=== PATIENT | female | born 1985 | race Caucasian/White ===

== ENCOUNTER 2018-04-23 16:58 | Inpatient (IN) | payer OTHER ==
[2018-04-23] MEDS ORDERED: OXYTOCIN 30 UNITS/LR 500 ML IV ×2 (18:00)
[2018-04-23] MEDS ORDERED: LIDOCAINE 1% (MPF) 30 ML INJ INJ (18:00)
[2018-04-23] MEDS ORDERED: METHYLERGONOVINE 0.2 MG INJ IM (18:00)
[2018-04-23] MEDS ORDERED: IBUPROFEN 600 MG TAB PO (18:00)
[2018-04-23] MEDS ORDERED: BUTORPHANOL 2 MG INJ IV (18:00)
[2018-04-23] MEDS ORDERED: MISOPROSTOL 200 MCG TAB PR (18:00)
[2018-04-23] MEDS ORDERED: CARBOPROST 250 MCG INJ IM (18:00)
[2018-04-23] MEDS: LACTATED RINGER'S 1,000 ML IV ×2 (18:46→21:18)
[2018-04-23 19:21] LABS: ADD MAN DIFF? NO
[2018-04-23 19:25] LABS: WHITE BLOOD COUNT 12.2 10^3/ul (4.8-10.8)
[2018-04-23 19:25] LABS: BASOPHIL # 0.1 10^3/ul (0.0-0.1); BASOPHILS % 0.4 % (0.0-2.0); EOSINOPHILS # 0.2 10^3/ul (0.0-0.5); EOSINOPHILS % 1.4 % (0.0-7.0); HEMATOCRIT 33.7 % (37.0-47.0); HEMOGLOBIN 11.2 g/dl (12.0-16.0); LYMPHOCYTES # 1.7 10^3/ul (0.8-2.9); LYMPHOCYTES % 13.7 % (15.0-51.0); MEAN CORPUSCULAR HEMOGLOBIN 29.9 pg (29.0-33.0); MEAN CORPUSCULAR HGB CONC 33.2 g/dl (32.0-37.0); MEAN CORPUSCULAR VOLUME 89.9 fl (82.0-101.0); MEAN PLATELET VOLUME 10.5 fl (7.4-10.4); MONOCYTE # 1.1 10^3/ul (0.3-0.9); MONOCYTES % 8.8 % (0.0-11.0); NEUTROPHIL # 9.1 10^3/ul (1.6-7.5); NEUTROPHILS % 74.1 % (39.0-77.0); PLATELET COUNT 214 10^3/UL (140-415); RED BLOOD COUNT 3.75 10^6/ul (4.20-5.40)
[2018-04-23 19:44] LABS: INR 0.93; PARTIAL THROMBOPLASTIN TIME 25.2 Sec (23.0-35.0); PROTIME 12.6 Sec (11.9-14.9)
[2018-04-23] MEDS: OXYTOCIN 30 UNITS/LR 500 ML IV (22:10)
[2018-04-23] MEDS: RANITIDINE 150 MG TAB PO (23:40)
[2018-04-24] MEDS ORDERED: FENTAnyl 2MCG/ML-ROPIV 0.2% 100 ML (00:24)
[2018-04-24] MEDS: LACTATED RINGER'S 1,000 ML IV ×4 (00:42→09:22)
[2018-04-24] MEDS ORDERED: NALOXONE (0.4 MG/ML) INJ IV (01:00)
[2018-04-24] MEDS: FENTAnyl 2MCG/ML-ROPIV 0.2% 100 ML BAG EPI ×2 (08:26→15:52)
[2018-04-24] MEDS: AMPICILLIN 2 GM/NS (PMX) 100 ML IV (10:38)
[2018-04-24] MEDS: RANITIDINE 150 MG TAB PO (11:25)
[2018-04-24] MEDS: VALACYCLOVIR 500 MG TAB PO (11:25)
[2018-04-24] MEDS: AMPICILLIN 1 GM/NS (PMX) 50 ML IV (14:26)
[2018-04-24 15:23] LABS: RAPID PLASMA REAGIN NONREACTIVE (NR)
[2018-04-24] MEDS: OXYTOCIN 30 UNITS/LR 500 ML IV ×2 (17:12→20:48)
[2018-04-24] MEDS: LACTATED RINGER'S 1,000 ML IV* (17:22)
[2018-04-24] MEDS ORDERED: CARBOPROST 250 MCG INJ IM (17:30)
[2018-04-24] MEDS ORDERED: METHYLERGONOVINE 0.2 MG INJ IM (17:30)
[2018-04-24] MEDS ORDERED: MISOPROSTOL 200 MCG TAB PR (17:30)
[2018-04-24] MEDS ORDERED: OXYTOCIN 30 UNITS/LR 500 ML IV (17:30)
[2018-04-24] MEDS: IBUPROFEN 600 MG TAB PO ×2 (18:50→23:29)
[2018-04-24] MEDS: WITCH HAZEL/GLYCERIN PAD PR (20:45)
[2018-04-24] MEDS: BENZOCAINE 20% 56 ML SPRAY TOP (20:45)
[2018-04-24] MEDS: LANOLIN HPA 1 PKT TOP (20:46)
[2018-04-24] MEDS ORDERED: PATIENT'S OWN MEDICATION PO (21:00)
[2018-04-24] MEDS ORDERED: SERTRALINE 100 MG TAB PO (21:00)
[2018-04-24] MEDS: SERTRALINE 100 MG TAB PO (22:42)
[2018-04-24] MEDS: Mesalamine DR 1.2 GM TAB PO ×2 (23:32→23:49)
[2018-04-25] MEDS: LACTATED RINGER'S 1,000 ML IV* (01:22)
[2018-04-25] MEDS: HYDROCODONE/APAP (5/325) TAB PO ×2 (02:18→17:13)
[2018-04-25] MEDS: IBUPROFEN 600 MG TAB PO ×3 (05:45→18:01)
[2018-04-25 08:26] LABS: ADD MAN DIFF? NO
[2018-04-25 08:29] LABS: WHITE BLOOD COUNT 13.3 10^3/ul (4.8-10.8)
[2018-04-25 08:29] LABS: BASOPHILS % 0.3 % (0.0-2.0); EOSINOPHILS # 0.3 10^3/ul (0.0-0.5); EOSINOPHILS % 2.3 % (0.0-7.0); HEMATOCRIT 34.1 % (37.0-47.0); HEMOGLOBIN 10.9 g/dl (12.0-16.0); LYMPHOCYTES # 2.4 10^3/ul (0.8-2.9); LYMPHOCYTES % 18.4 % (15.0-51.0); MEAN CORPUSCULAR HEMOGLOBIN 29.2 pg (29.0-33.0); MEAN CORPUSCULAR VOLUME 91.4 fl (82.0-101.0); MEAN PLATELET VOLUME 10.6 fl (7.4-10.4); MONOCYTE # 1.2 10^3/ul (0.3-0.9); NEUTROPHIL # 9.2 10^3/ul (1.6-7.5); NEUTROPHILS % 69.1 % (39.0-77.0); PLATELET COUNT 213 10^3/UL (140-415); RED BLOOD COUNT 3.73 10^6/ul (4.20-5.40)
[2018-04-25] MEDS: VALACYCLOVIR 500 MG TAB PO (09:01)
[2018-04-25] MEDS: SERTRALINE 100 MG TAB PO (21:14)
[2018-04-25] MEDS: Mesalamine DR 1.2 GM TAB PO (21:14)
[2018-04-26] MEDS: IBUPROFEN 600 MG TAB PO ×3 (00:03→12:14)
[2018-04-26] MEDS: VALACYCLOVIR 500 MG TAB PO (08:51)
[2018-04-26] MEDS: DIPHTH/TET/ACEL PERTUSS (ADULT) 0.5 ML VIAL IM* (09:00)
== END 2018-04-26 15:18 | disposition home or self-care (01) | DRG 807 ==
LOC: OBT 16:58 → L-D 17:01 → OBT 17:35 → PP1 04-24 19:48 → L-D 17:35
PROVIDERS: Obstetrics & Gynecology
PROC: 10E0XZZ Delivery of Products of Conception, External Approach (ICD-10-PCS; principal; 2018-04-24)
PROC: 0KQM0ZZ Repair Perineum Muscle, Open Approach (ICD-10-PCS; 2018-04-24)
DX: O98.52 Other viral diseases complicating childbirth (principal); Z37.0 Single live birth; B00.9 Herpesviral infection, unspecified; O99.344 Other mental disorders complicating childbirth; F31.9 Bipolar disorder, unspecified; O70.1 Second degree perineal laceration during delivery; Z3A.37 37 weeks gestation of pregnancy
CPT/HCPCS: 62319; 85025; 85610; 85730; 86592; 86850; 86900; 86901; 99464